=== PATIENT | male | born 1960 | race Caucasian/White ===

== ENCOUNTER 2016-05-31 13:11 | Emergency (ER) | payer BC ==
[~2016-05-31] VITALS: Ht 175.3 cm; Wt 80.9 kg
[2016-05-31 13:15] VITALS: TEMP 99.2
[2016-05-31] MEDS ORDERED: NORCO 325 MG-51 TAB PO (14:02)
[2016-05-31 14:27] VITALS: BP 111/81; PULSE 78
== END 2016-05-31 14:27 | disposition home or self-care (01) ==
LOC: COL.ER 13:11
DX: S76.112A Strain of left quadriceps muscle, fascia and tendon, initial encounter (principal); X50.9XXA Other and unspecified overexertion or strenuous movements or postures, initial encounter; Y93.66 Activity, soccer
CPT/HCPCS: L1830

== ENCOUNTER 2016-06-27 20:34 | Inpatient (IN) | payer BC ==
[~2016-06-27] VITALS: Ht 175.3 cm; Wt 79.2 kg
[~2016-06-27 20:34] MED LIST: NORCO 325 MG-51 TAB PO
[2016-06-27 22:03] LABS: BASO % 0.3 % (0.0-2.0); EOS # 0.1 (0.0-0.7); EOS % 0.9 % (0-4.0); GRAN # 8.7 (1.4-6.5); HEMATOCRIT 40.5 % (42.0-52.0); HEMOGLOBIN 13.5 g/dl (13.5-18.0); LYMPH % 9.2 % (20.0-51.0); MEAN CELL VOLUME 88 fl (80.0-100.0); MEAN CORPUSCULAR HEMOGLOBIN 29 pg (27.0-31.0); MEAN CORPUSCULAR HGB CONC 33 g/dl (33.0-37.0); MEAN PLATELET VOLUME 9.1 fl (7.4-10.4); MONO # 0.7 (0.1-0.6); MONO % 6.2 % (1.7-9.3); PLATELET COUNT 177 K/mm3 (130-400); RED BLOOD COUNT 4.61 M/mm3 (4.20-5.60); REDCELL DISTRIBUTION WIDTH-CV 13.1 % (11.5-14.5); WHITE BLOOD COUNT 10.5 K/mm3 (4.8-10.8)
[2016-06-27 22:56] LABS: ADJUSTED CALCIUM 9.2 mg/dL (8.4-10.2); ALANINE AMINOTRANSFERASE 52 U/L (21-72); ALBUMIN 3.5 gm/dL (3.5-5.0); ALKALINE PHOSPHATASE 77 U/L (50-136); ANION GAP 9 mmol/L (7-16); BILIRUBIN,TOTAL 1.3 mg/dL (0.0-1.0); BLOOD UREA NITROGEN 18 mg/dL (9-20); CALCIUM 8.8 mg/dL (8.4-10.2); CARBON DIOXIDE 27 mmol/L (22-30); CHLORIDE 105 mmol/L (98-107); CREATININE, serum 1.11 mg/dL (0.66-1.25); GLUCOSE 100 mg/dL (74-106); MAGNESIUM 1.8 mg/dL (1.6-2.3); POTASSIUM 4.3 mmol/L (3.4-5.0); SODIUM 140 mmol/L (137-145); TOTAL PROTEIN 6.5 gm/dL (6.4-8.2)
[2016-06-27 23:12] LABS: TROPONIN-I < 0.012 ng/mL (0.000-0.034)
[2016-06-28 02:41] VITALS: BP 114/79; PULSE 83; TEMP 97.7
[2016-06-28 03:53] VITALS: BP 134/62; PULSE 60; TEMP 98.1
[2016-06-28 08:50] VITALS: BP 118/71; PULSE 66; TEMP 98.1
[2016-06-28 10:20] LABS: INR 1.3 (0.8-3.0)
[2016-06-28 12:11] VITALS: BP 115/67; PULSE 68; TEMP 97.7
[2016-06-28 16:07] VITALS: BP 129/70; PULSE 62; TEMP 98
[2016-06-28 21:53] VITALS: BP 114/70; PULSE 63; TEMP 98.4
[2016-06-29 00:36] VITALS: BP 111/78; PULSE 57; TEMP 97.5
[2016-06-29 03:44] VITALS: BP 105/85; PULSE 58; TEMP 97.8
[2016-06-29 08:20] VITALS: BP 119/72; PULSE 65; TEMP 97.8
[2016-06-29 11:25] VITALS: BP 124/73; PULSE 65; TEMP 97.8
[2016-06-29 15:37] VITALS: BP 102/54; PULSE 63; TEMP 98.2
[2016-06-29 20:25] VITALS: BP 117/70; PULSE 64; TEMP 98.2
[2016-06-30 00:09] VITALS: BP 114/67; PULSE 55; TEMP 98.1
[2016-06-30 03:58] VITALS: BP 123/68; PULSE 63; TEMP 98.2
[2016-06-30 07:50] VITALS: BP 114/74; PULSE 58; TEMP 98.2
[2016-06-30] MEDS ORDERED: XARELTO15 MG PO (08:49)
[2016-06-30 11:21] VITALS: BP 105/73; PULSE 57; TEMP 98.5
== END 2016-06-30 12:30 | disposition home or self-care (01) | DRG 300 ==
LOC: COL.ER 20:34 → MEDICAL 06-28 00:04
PROVIDERS: Emergency Medicine; Internal Medicine
DX: T81.72XA Complication of vein following a procedure, not elsewhere classified, initial encounter (principal); I82.432 Acute embolism and thrombosis of left popliteal vein; I26.99 Other pulmonary embolism without acute cor pulmonale
CPT/HCPCS: 99223-AI; 99232-AI; 99239; J1650; J7030; Q9967

== ENCOUNTER → 2016-08-12 | Outpatient (CLI) | payer BC ==
[~2016-08-12] MED LIST changes: +XARELTO15 MG PO
== END ==
LOC: COL.RAD 07:30
DX: N40.0 Benign prostatic hyperplasia without lower urinary tract symptoms (principal); R31.0 Gross hematuria; K76.89 Other specified diseases of liver; M51.36 Other intervertebral disc degeneration, lumbar region
CPT/HCPCS: Q9967

== ENCOUNTER → 2017-02-02 | Outpatient (CLI) | payer BC | LOC: COL.RAD 07:48 | DX: I26.99 Other pulmonary embolism without acute cor pulmonale (principal) | CPT/HCPCS: Q9967 ==

== ENCOUNTER → 2017-02-16 | Outpatient (CLI) | payer BC | LOC: COL.VAS 07:59 | DX: I82.492 Acute embolism and thrombosis of other specified deep vein of left lower extremity (principal) ==

== ENCOUNTER → 2019-11-22 | Outpatient (CLI) | payer BC | LOC: COL.LAB 08:42 | DX: U07.1 COVID-19 (principal) ==